=== PATIENT | male | born 1965 | race Caucasian/White ===

== ENCOUNTER 2018-04-16 07:11 | Day surgery (SDC) | payer BC ==
[~2018-04-16] VITALS: Ht 177.8 cm; Wt 108.0 kg
[~2018-04-16 07:11] MED LIST: AMLO10 PO; AMLOD-VALSA-HC1 EAC1 PO; Augmentin 875-1 EACH PO; LOPE2C PO; LOSA25 PO; NAPR500 PO; ONDA4ODT MM; Omeprazole20 M1 PO; Percocet 5-3251 EACH PO; Questran4 GM PO; SACC250C PO; VALSARTAN-HCTZ1 EAC1 PO; VANC250 PO
== END 2018-04-16 22:44 | disposition home or self-care (01) ==
LOC: ORSCMMR 07:11 → ORD 08:00 → ORSCMMR 22:44
PROVIDERS: Internal Medicine Gastroenterology
PROC: 0DBE8ZX Excision of Large Intestine, Via Natural or Artificial Opening Endoscopic, Diagnostic (ICD-10-PCS; principal; 2018-04-16 08:00)
DX: R19.4 Change in bowel habit (principal); G47.33 Obstructive sleep apnea (adult) (pediatric); I10 Essential (primary) hypertension; Z79.899 Other long term (current) drug therapy
CPT/HCPCS: 88305; J2250; J3010; J7120

== ENCOUNTER → 2018-07-27 | Outpatient (CLI) | payer BC | END | disposition home or self-care (01) | LOC: LAB 19:06 → LAB SHORT 19:06 | DX: N50.819 Testicular pain, unspecified (principal); R30.0 Dysuria | CPT/HCPCS: 87086 ==

== ENCOUNTER → 2018-08-06 | Outpatient (CLI) | payer BC | LOC: LAB SHORT 19:28 → LAB 19:28 | DX: R30.0 Dysuria (principal) | CPT/HCPCS: 87086 ==

== ENCOUNTER → 2018-12-28 | Outpatient (CLI) | payer BC ==
[2018-12-28 18:43] LABS: International Normalized Ratio 0.98; Prothrombin Time Results 10.4 Sec (9.7-11.5)
== END | disposition home or self-care (01) ==
LOC: LAB 16:50 → LAB SHORT 16:50
PROVIDERS: Internal Medicine Hematology & Oncology
DX: D72.829 Elevated white blood cell count, unspecified (principal); R89.9 Unspecified abnormal finding in specimens from other organs, systems and tissues
CPT/HCPCS: 85610; 85730

== ENCOUNTER → 2018-12-29 | Outpatient (CLI) | payer BC ==
[2018-12-29 13:15] LABS: Alanine Aminotransfer (ALT/SGP 66 U/L (12-78); Alk Phos 125 U/L (50-136); Anion Gap 7 mmol/L (6-16); Aspartate Aminotrans (AST/SGOT 27 U/L (12-37); Bilirubin, Total 0.5 mg/dL (0.1-1.0); Blood Urea Nitrogen 24 mg/dL (8-24); Bun/Creatinine Ratio 21.6 (12.0-20.0); CO2, Blood 27 mmol/L (21-32); Calcium, Blood 9.2 mg/dL (8.5-10.1); Chloride, Blood 103 mmol/L (98-108); Creatinine, Blood 1.11 mg/dL (0.60-1.20); Globulin, Blood 4.1 g/dL (2.2-4.0); Glomerular Filtration Rate >60 (60-); Glucose, Blood 153 mg/dL (70-99); Potassium, Blood 4.1 mmol/L (3.5-5.5); Sodium, Blood 137 mmol/L (136-145); Total Protein, Blood 8.1 g/dL (6.4-8.2)
[2018-12-31 15:07] LABS: A/G RATIO 1.1 (0.7-1.7); ALBUMIN 4.1 g/dL (2.9-4.4); ALPHA-1-GLOBULIN 0.3 g/dL (0.0-0.4); ALPHA-2-GLOBULIN 0.7 g/dL (0.4-1.0); BETA GLOBULIN 1.4 g/dL (0.7-1.3); GAMMA GLOBULIN 1.3 g/dL (0.4-1.8); GLOBULIN, TOTAL 3.7 g/dL (2.2-3.9); M-SPIKE Not Observed g/dL (Not Observed); PROTEIN, TOTAL, SERUM 7.8 g/dL (6.0-8.5)
== END | disposition home or self-care (01) ==
LOC: LAB 09:00 → LAB SHORT 09:00
PROVIDERS: Internal Medicine Hematology & Oncology
DX: D47.2 Monoclonal gammopathy (principal)
CPT/HCPCS: 80053; 84165

== ENCOUNTER 2019-01-01 10:35 | Day surgery (SDC) | payer BC | END 2019-01-02 00:12 | disposition home or self-care (01) | LOC: CT 10:35 | DX: D75.89 Other specified diseases of blood and blood-forming organs (principal); D72.829 Elevated white blood cell count, unspecified; M54.5 Low back pain; R20.0 Anesthesia of skin; I10 Essential (primary) hypertension | CPT/HCPCS: 20220; 77012; 88305; 88311; 88341; 88342 ==

== ENCOUNTER 2019-08-27 09:37 | Day surgery (SDC) | payer BC | END 2019-08-27 23:13 | disposition home or self-care (01) | LOC: US 09:37 | DX: I96 Gangrene, not elsewhere classified (principal); C79.51 Secondary malignant neoplasm of bone; C79.9 Secondary malignant neoplasm of unspecified site; M54.6 Pain in thoracic spine | CPT/HCPCS: 20206; 76942; 88305; 88341; 88342 ==